=== PATIENT | female | born 1955 | race Two or more races ===

== ENCOUNTER → 2025-09-18 | Outpatient (CLI) | payer MEDICARE, MEDICAID, SELFPAY ==
--- NOTE | 2025-09-18 09:33 | RESP.EEG ---
EEG complete and ready to read
== END | disposition home or self-care (01) ==
LOC: SRTX 07:40
PROVIDERS: Referring Provider Psychiatry & Neurology Neurology; Visit Provider Psychiatry & Neurology Neurology
DX: G31.84 Mild cognitive impairment of uncertain or unknown etiology (principal)
CPT/HCPCS: 95816